=== PATIENT | male | born 1930 | race Caucasian/White ===

== ENCOUNTER 2017-09-29 05:09 | Observation (INO) ==
[2017-09-29 05:36] LABS: Basophils % 0.8 %; Eosinophils # 0.2 K/mcL (0.0-0.6); Eosinophils % 4.3 %; Hematocrit 35.3 % (37.5-50.1); Hemoglobin 11.9 g/dL (12.9-16.9); Immature Granulocytes % 0.4 % (0-4); Lymphocytes # 1.6 K/mcL (0.6-4.6); Lymphocytes % 31.4 %; Mean Corpuscular HGB Conc 33.7 g/dL (31.6-35.5); Mean Corpuscular Hemoglobin 30.3 pg (28.0-33.3); Mean Corpuscular Volume 89.8 fL (83.0-100.0); Monocytes # 0.6 K/mcL (0.0-1.3); Monocytes % 11.1 %; Neutrophils # 2.6 K/mcL (1.6-8.9); Platelet Count 156 K/mcL (140-400); Red Blood Count 3.93 M/mcL (4.19-5.50); Red Cell Distribution Width 12.4 % (11.5-14.5)
--- NOTE | 2017-09-29 05:43 | Emergency Department Note ---
Disposition Clinical Impression: Chest pressure Dyspnea Qualifiers: Dyspnea type: unspecified Qualified Code(s): R06.00 - Dyspnea, unspecified Disposition: Still a Patient Condition: Undetermined Referrals: Zain Ching MD [Primary Care Provider] - Forms: ED Satisfaction Letter General Adult HPI - General Chief complaint: ED Shortness of Breath/Dyspnea Stated complaint: MIKAELA Time Seen by Provider: 09/29/17 05:17 Source: patient, family Limitations: no limitations Nursing Notes Reviewed: Yes Vital Signs Reviewed: Yes - History of Present Illness HPI Narrative: 87-year-old male who presents due to shortness of breath for the last 8 hours. He said it started as he was getting ready to go to bed. He denies ever feeling this way before. He denies a history of coronary arterial disease. 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 Jamil Covarrubias for his bradycardia. In reading his clinic notes it seems that the consensus was not to go ahead with a pacemaker unless he has worsening of his chronic fatigue. He does admit to a pressure in his chest which is present on exertion He denies any other symptoms aside what he described above. He states that yesterday afternoon he was feeling normal. No fever or abdominal pain. Pain Scale: 0 Improves with: nothing Worsens with: nothing Associated symptoms: Reports: denies other symptoms Treatments Prior to Arrival: none - Related Data Home Medications Medication Instructions Recorded Confirmed Cholecalciferol (Vitamin D3) 1,000 unit PO DAILY 02/16/16 05/10/17 [Vitamin D3] Levothyroxine [Synthroid] 75 mcg PO DAILY 02/16/16 05/10/17 Pantoprazole Sodium [Protonix] 40 mg PO DAILY 02/16/16 05/10/17 Cyanocobalamin (Vitamin B-12) 2,000 mcg PO DAILY 08/05/16 05/10/17 [Vitamin B-12] Simvastatin [Zocor] 40 mg PO HS 08/05/16 05/10/17 Previous Rx's Medication Instructions Recorded Losartan [Cozaar] 100 mg PO DAILY tablet 08/09/16 Allergies Allergy/AdvReac Type Severity Reaction Status Date / Time No Known Allergies Allergy Verified 05/10/17 04:56 All systems ED: reviewed and negative except as stated. Constitutional: Denies: fever ENT ED: Denies: throat pain Respiratory: Reports: dyspnea. Denies: cough Gastrointestinal: Denies: abdominal pain Musculoskeletal: Denies: back pain Integumentary: Denies: rash Neurological: Denies: headache Endocrine: Reports: fatigue Past Medical History - Past Medical History Medical history: Reports: GERD, hyperlipidemia, hypertension, thyroid disease, other Psychiatric history: Reports: no psych history - Social History Smoking Status: Former smoker Smokeless Tobacco Status: No Alcohol use: Reports: none Drug use: Reports: none Physical Exam - General Limitations: no limitations General appearance: alert, in no apparent distress - Head Head exam: atraumatic - Eye Eye exam: Present: normal appearance, PERRL - ENT ENT exam: normal exam, normal oropharynx - Neck Neck exam: Present: normal inspection - Chest Chest inspection: Present: normal inspection - Respiratory Respiratory exam: Present: normal lung sounds bilaterally. Absent: respiratory distress - Cardiovascular Cardiovascular exam: Present: normal rhythm, bradycardia - Abdominal Exam Abdominal exam: Present: soft, Non-Tender - Extremities Exam Extremities exam: Present: normal inspection - Neurological Exam Neurological exam: Present: alert, oriented X3 - Psychiatric Psychiatric exam: Present: normal affect, normal mood - Skin Skin exam: Present: warm, dry Course Course Narrative: His d-dimer is elevated. His GFR is not optimal so we will do a VQ scan to rule out pulmonary embolism. EKG shows sinus bradycardia. Otherwise lab work is unremarkable. Signed out to the day team to follow up on the VQ scan results and provide disposition. Vital Signs Temperature 97.3 F L 09/29/17 05:09 Pulse Rate 52 09/29/17 05:09 Respiratory Rate 20 09/29/17 05:09 Blood Pressure 176/72 09/29/17 05:09 O2 Sat by Pulse Oximetry 99 09/29/17 05:09 Temperature 97.3 F L 09/29/17 05:09 Pulse Rate 52 09/29/17 07:04 Respiratory Rate 14 09/29/17 07:04 Blood Pressure 141/77 09/29/17 07:04 O2 Sat by Pulse Oximetry 100 09/29/17 07:04 Oxygen Delivery Oxygen Delivery Room Air Medical Decision Making - Medical Records Medical records reviewed: Yes I reviewed the patient's medical records. - Lab Data Lab results reviewed: Yes I reviewed the patient's lab results. Result diagrams: 09/29/17 05:30 09/29/17 05:30 Lab Results 09/29/17 09/29/17 09/29/17 Range/Units 05:30 05:30 05:30 WBC 5.1 (4.3-11.1) K/mcL RBC 3.93 L (4.19-5.50) M/mcL Hgb 11.9 L (12.9-16.9) g/dL Hct 35.3 L (37.5-50.1) % MCV 89.8 (83.0-100.0) fL MCH 30.3 (28.0-33.3) pg MCHC 33.7 (31.6-35.5) g/dL RDW 12.4 (11.5-14.5) % Plt Count 156 (140-400) K/mcL MPV 9.0 L (9.4-12.4) fL Immature Gran % 0.4 (0-4) % Seg Neutrophils % 52.0 % Lymphocytes % 31.4 % Monocytes % 11.1 % Eosinophils % 4.3 % Basophils % 0.8 % Neutrophils # 2.6 (1.6-8.9) K/mcL Lymphocytes # 1.6 (0.6-4.6) K/mcL Monocytes # 0.6 (0.0-1.3) K/mcL Eosinophils # 0.2 (0.0-0.6) K/mcL Basophils # 0.0 (0.0-0.2) K/mcL D-Dimer 837 H (0-500) ng/mLFEU Sodium 141 (136-145) mEq/L Potassium 4.2 (3.5-4.5) mEq/L Chloride 108 (98-109) mEq/L Carbon Dioxide 25 (19-29) mEq/L BUN 19 (8-26) mg/dL Creatinine 1.42 H (0.72-1.25) mg/dL Est GFR ( Amer) 57 L (> 60) Est GFR (Non-Af Amer) 47 L (> 60) BUN/Creatinine Ratio 13 (6-26) Glucose 124 H (70-99) mg/dL Calculated Osmolality 296 (280-300) Calcium 10.2 (8.6-10.8) mg/dL Troponin I (0-0.03) ng/mL B-Natriuretic Peptide (0-100) pg/mL 09/29/17 09/29/17 Range/Units 05:30 05:30 WBC (4.3-11.1) K/mcL RBC (4.19-5.50) M/mcL Hgb (12.9-16.9) g/dL Hct (37.5-50.1) % MCV (83.0-100.0) fL MCH (28.0-33.3) pg MCHC (31.6-35.5) g/dL RDW (11.5-14.5) % Plt Count (140-400) K/mcL MPV (9.4-12.4) fL Immature Gran % (0-4) % Seg Neutrophils % % Lymphocytes % % Monocytes % % Eosinophils % % Basophils % % Neutrophils # (1.6-8.9) K/mcL Lymphocytes # (0.6-4.6) K/mcL Monocytes # (0.0-1.3) K/mcL Eosinophils # (0.0-0.6) K/mcL Basophils # (0.0-0.2) K/mcL D-Dimer (0-500) ng/mLFEU Sodium (136-145) mEq/L Potassium (3.5-4.5) mEq/L Chloride (98-109) mEq/L Carbon Dioxide (19-29) mEq/L BUN (8-26) mg/dL Creatinine (0.72-1.25) mg/dL Est GFR ( Amer) (> 60) Est GFR (Non-Af Amer) (> 60) BUN/Creatinine Ratio (6-26) Glucose (70-99) mg/dL Calculated Osmolality (280-300) Calcium (8.6-10.8) mg/dL Troponin I 0.01 (0-0.03) ng/mL B-Natriuretic Peptide 89 (0-100) pg/mL - Radiology Data Radiology results reviewed: Yes I reviewed the patient's radiology results. - EKG Data EKG #1 EKG attestation: Yes I reviewed and interpreted this EKG. EKG shows normal: sinus rhythm Rate: bradycardia Rhythm: NSR Attestation Statement - Attestation Attestation: I, Simone Hammond MD, personally evaluated this patient and discussed their management with the resident physician. I reviewed the resident's note and agree with the documented findings, medical decision making, and plan of care. 87-year-old male presents to the emergency department with a complaint of shortness of breath all night which started just after he went to bed last evening. No cough or fever. He denies chest pain but states that he has a tightness and discomfort to his chest. Patient has a history of chronic bradycardia. On examination patient is a well-developed well-nourished well-appearing elderly male in no acute distress. He is alert and oriented 3. There is no cyanosis or diaphoresis. Breath sounds are slightly decreased bilaterally with a few late expiratory wheezes. No rales noted. Heart is bradycardic and slightly irregular. Abdomen soft and nontender with normal bowel sounds. Labs reviewed. Elevated d-dimer. At shift change patient is awaiting a VQ scan and is being signed out to the oncoming dayshift team, Dr. Perez and Dr. Farmer.
[2017-09-29 05:58] LABS: Calcium 10.2 mg/dL (8.6-10.8); Potassium 4.2 mEq/L (3.5-4.5)
--- NOTE | 2017-09-29 08:25 | Emergency Department Note ---
Disposition Clinical Impression: Chest pressure Dyspnea Qualifiers: Dyspnea type: unspecified Qualified Code(s): R06.00 - Dyspnea, unspecified Disposition: Still a Patient Condition: Undetermined Time of Disposition: 15:36 General Adult HPI - General Chief complaint: ED Shortness of Breath/Dyspnea Stated complaint: MIKAELA Time Seen by Provider: 09/29/17 05:17 Source: patient, family Limitations: no limitations Nursing Notes Reviewed: Yes Vital Signs Reviewed: Yes - History of Present Illness HPI Narrative: Mr. Landrum, 87-year-old male, presents from home for evaluation of shortness of breath. Onset approximately 20:00 last night as he was getting ready for bed. Associated with chest heaviness present at rest and with exertion. His dyspnea did not improve with his CPAP machine. No previous episodes of similar symptoms. Patient has a history of known bradycardia and was seen yesterday by his PCP, Dr. Rothman, and his manager environmental, Dr. Covarrubias. In speaking with the patient, he is on the fence as to whether or not he would desire a pacemaker. In reading the patient's clinic notes, the consensus is that he is currently on hold as Dr. Covarrubias do not believe his bradycardia was shooting to his chronic fatigue. PMH: Appendectomy, CKD, remote prostate cancer, bradycardia ROS: Positive: Dyspnea, chest heaviness Negative: Fever, chills, numbness, tingling, palpitations, back pains, weakness , cough Pain Scale: 0 Improves with: nothing Worsens with: nothing Associated symptoms: Reports: denies other symptoms Treatments Prior to Arrival: none - Related Data Home Medications Medication Instructions Recorded Confirmed Cholecalciferol (Vitamin D3) 1,000 unit PO DAILY 02/16/16 09/29/17 [Vitamin D3] Levothyroxine [Synthroid] 75 mcg PO DAILY 02/16/16 09/29/17 Pantoprazole Sodium [Protonix] 40 mg PO DAILY 02/16/16 09/29/17 Cyanocobalamin (Vitamin B-12) 2,000 mcg PO DAILY 08/05/16 09/29/17 [Vitamin B-12] Simvastatin [Zocor] 40 mg PO HS 08/05/16 09/29/17 Latanoprost [Xalatan] 1 drop OP HS 09/29/17 09/29/17 Losartan Potassium [Cozaar] 50 mg PO DAILY 09/29/17 09/29/17 Tamsulosin HCl [Flomax] 0.4 mg PO DAILY 09/29/17 09/29/17 Allergies Allergy/AdvReac Type Severity Reaction Status Date / Time No Known Allergies Allergy Verified 05/10/17 04:56 All systems ED: reviewed and negative except as stated. Review of Systems: As Per HPI Constitutional: Denies: fever ENT ED: Denies: throat pain Respiratory: Reports: dyspnea. Denies: cough Gastrointestinal: Denies: abdominal pain Musculoskeletal: Denies: back pain Integumentary: Denies: rash Neurological: Denies: headache Endocrine: Reports: fatigue Past Medical History - Past Medical History Medical history: Reports: GERD, hyperlipidemia, hypertension, thyroid disease, other Psychiatric history: Reports: no psych history - Social History Smoking Status: Former smoker Smokeless Tobacco Status: No Alcohol use: Reports: none Drug use: Reports: none Physical Exam Vital Signs Reviewed General: Patient is alert, oriented, and in no acute distress. HEENT: No facial asymmetry. Head is normocephalic and atraumatic. Oral mucosa moist. Trachea midline. Cardiovascular: Heart bradycardic rate and regular rhythm without clicks, rubs, gallops, or murmurs. No JVD. PMI nondisplaced. Bilateral radial pulses 2/4 and equal. No pedal edema. Respiratory: Symmetric chest rise with good respiratory effort. Bilateral breath sounds are clear without wheezing, crackles, or rhonchi. Abdomen: Bowel sounds present normoactive x-4 quadrants. Abdomen is soft, nondistended, and nontender. No organomegaly noted. Neuro: GCS 15. Skin: Warm, dry, intact. Psych: Patient's affect is appropriate for situation. - General Limitations: no limitations General appearance: alert, in no apparent distress Course Course Narrative: History presents with concerning symptoms of dyspnea and chest heaviness. D- dimer is elevated however, given patient's history of chronic kidney disease, will perform VQ scan. Physical exam is unremarkable for congestive heart failure or pneumonia. Chest x-ray is unremarkable. EKG shows worsening of ST depressions in leads V5, V6. Initial troponin is 0.01. We will continue to monitor. VQ scan shows low probability. Initial troponin is below upper limit of normal. BNP not elevated. Chest x-ray unremarkable. Patient agrees to admission for chest pain rule out ACS. I discussed in detail my concerns with him the need for repeat laboratory work as well as additional cardiac imaging including cardiac ultrasound. He has no additional questions concerning this time. Stress the patient with the admitting hospitalist, Dr. Barbosa, who agrees to accept the patient continued evaluation and management. Vital Signs Temperature 97.3 F L 09/29/17 05:09 Pulse Rate 52 09/29/17 05:09 Respiratory Rate 20 09/29/17 05:09 Blood Pressure 176/72 09/29/17 05:09 O2 Sat by Pulse Oximetry 99 09/29/17 05:09 Temperature 97.3 F L 09/29/17 05:09 Pulse Rate 48 09/29/17 12:21 Respiratory Rate 13 09/29/17 12:21 Blood Pressure 194/85 09/29/17 12:21 O2 Sat by Pulse Oximetry 99 09/29/17 12:21 Oxygen Delivery Oxygen Delivery Room Air Medical Decision Making - Medical Records Medical records reviewed: Yes I reviewed the patient's medical records. - Lab Data Lab results reviewed: Yes I reviewed the patient's lab results. Result diagrams: 09/29/17 05:30 09/29/17 05:30 Lab Results 09/29/17 09/29/17 09/29/17 Range/Units 05:30 05:30 05:30 WBC 5.1 (4.3-11.1) K/mcL RBC 3.93 L (4.19-5.50) M/mcL Hgb 11.9 L (12.9-16.9) g/dL Hct 35.3 L (37.5-50.1) % MCV 89.8 (83.0-100.0) fL MCH 30.3 (28.0-33.3) pg MCHC 33.7 (31.6-35.5) g/dL RDW 12.4 (11.5-14.5) % Plt Count 156 (140-400) K/mcL MPV 9.0 L (9.4-12.4) fL Immature Gran % 0.4 (0-4) % Seg Neutrophils % 52.0 % Lymphocytes % 31.4 % Monocytes % 11.1 % Eosinophils % 4.3 % Basophils % 0.8 % Neutrophils # 2.6 (1.6-8.9) K/mcL Lymphocytes # 1.6 (0.6-4.6) K/mcL Monocytes # 0.6 (0.0-1.3) K/mcL Eosinophils # 0.2 (0.0-0.6) K/mcL Basophils # 0.0 (0.0-0.2) K/mcL D-Dimer 837 H (0-500) ng/mLFEU Sodium 141 (136-145) mEq/L Potassium 4.2 (3.5-4.5) mEq/L Chloride 108 (98-109) mEq/L Carbon Dioxide 25 (19-29) mEq/L BUN 19 (8-26) mg/dL Creatinine 1.42 H (0.72-1.25) mg/dL Est GFR ( Amer) 57 L (> 60) Est GFR (Non-Af Amer) 47 L (> 60) BUN/Creatinine Ratio 13 (6-26) Glucose 124 H (70-99) mg/dL Calculated Osmolality 296 (280-300) Calcium 10.2 (8.6-10.8) mg/dL Troponin I (0-0.03) ng/mL B-Natriuretic Peptide (0-100) pg/mL 09/29/17 09/29/17 Range/Units 05:30 05:30 WBC (4.3-11.1) K/mcL RBC (4.19-5.50) M/mcL Hgb (12.9-16.9) g/dL Hct (37.5-50.1) % MCV (83.0-100.0) fL MCH (28.0-33.3) pg MCHC (31.6-35.5) g/dL RDW (11.5-14.5) % Plt Count (140-400) K/mcL MPV (9.4-12.4) fL Immature Gran % (0-4) % Seg Neutrophils % % Lymphocytes % % Monocytes % % Eosinophils % % Basophils % % Neutrophils # (1.6-8.9) K/mcL Lymphocytes # (0.6-4.6) K/mcL Monocytes # (0.0-1.3) K/mcL Eosinophils # (0.0-0.6) K/mcL Basophils # (0.0-0.2) K/mcL D-Dimer (0-500) ng/mLFEU Sodium (136-145) mEq/L Potassium (3.5-4.5) mEq/L Chloride (98-109) mEq/L Carbon Dioxide (19-29) mEq/L BUN (8-26) mg/dL Creatinine (0.72-1.25) mg/dL Est GFR ( Amer) (> 60) Est GFR (Non-Af Amer) (> 60) BUN/Creatinine Ratio (6-26) Glucose (70-99) mg/dL Calculated Osmolality (280-300) Calcium (8.6-10.8) mg/dL Troponin I 0.01 (0-0.03) ng/mL B-Natriuretic Peptide 89 (0-100) pg/mL - Radiology Data Radiology results reviewed: Yes I reviewed the patient's radiology results. Chest X-Ray 09/29/17 05:24 IMPRESSION: No radiographic evidence of acute cardiopulmonary disease. D/ / Regino Simons / Regino Simons Interpreting Provider: Regino Simons Chest X-Ray 09/29/17 05:24 IMPRESSION: No radiographic evidence of acute cardiopulmonary disease. D/ / Regino Simons / Regino Simons Interpreting Provider: Regino Simons Pulmonary Perfusion Imaging 09/29/17 06:06 IMPRESSION: 1. Low probability for pulmonary embolism. 2. Clumped activity in central airways potentially due to poor inspiratory effort and/or airways disease. D/ / Coleman Mayo MD / Coleman Mayo MD Interpreting Provider: Coleman Mayo MD - EKG Data EKG #1 EKG attestation: Yes I reviewed and interpreted this EKG. EKG results narrative: EKG dated 09/29/17 at 05:22 interpreted as sinus bradycardia with a rate of 52. TN 181, QRS 110, QT/QTc 460/440. Nonspecific ST changes. Left axis. Compared previous dated 08/31/2017 shows no acute ischemic changes comparison. Attestation Statement - Attestation Attestation: I examined this patient and my medical decision-making was reviewed with the Resident Physician. I agree with the documented findings, disposition and treatment plan as described except to the extent set forth below. Patient signed out by Dr. Hammond pending V/Q. V/Q low probability for PE. Admitted to medicine.
[2017-09-29] MEDS ORDERED: Acetaminophen 325 MG TABLET PO PRN (11:20)
[2017-09-29] MEDS ORDERED: Naloxone 0.4 MG/ML INJ IVP PRN (11:20)
--- NOTE | 2017-09-29 11:36 | Internal Med History&Physical ---
Date of Encounter: 09/29/17 Time of Encounter: 11:32 Assessment and Plan (1) Chest pressure Current visit: Yes Status: Acute Patient is known to have a chest pressure. He is well known to cardiology service. Cardiology is on the board. We will get a recommendation from cardiology. (2) Bradycardia Current visit: No Status: Chronic Bradycardia: This patient is known to have a bradycardia for long duration. Noted that patient is following with Dr. Jamil Potter is her technical business analyst I called cardiology consult for possible evaluation by cardiology for any further intervention. (3) CKD (chronic kidney disease) Current visit: No Status: Chronic Qualifiers: Chronic kidney disease stage: stage 2 (mild) Qualified Code(s): N18.2 - Chronic kidney disease, stage 2 (mild) (4) Dyspnea Current visit: Yes Status: Acute Ongoing dyspnea unlikely known etiology. Patient is feeling better and oxygen saturation in the 90s. Possible COPD Will closely observe. Qualifiers: Dyspnea type: unspecified Qualified Code(s): R06.00 - Dyspnea, unspecified (5) DVT prophylaxis Current visit: Yes Status: Acute Heparin Medical Decision Making : moderate risk secondary to underlying comorbid conditions. Internal Medicine - H&P: HPI Chief complaint: Shortness of breath/chest pressure Admitted From: Emergency Dept Plans for Post Hospital Care: Home History of present illness: PCP: Dr. Siegel Brief past medical history: Glaucoma, hypertension, coronary artery disease, bradycardia, sleep apnea History of present medical illness: Patient is ongoing feeling of"weakness"for past 2 weeks. Noted that in past 48 hours patient was having difficulty breathing. Patient woke up around 3 in the morning and was unable to breathe that is the reason he came to the hospital for further evaluation. Generally is known to have a sleep apnea and uses CPAP at night. Patient was not able to breathe as his accessory muscles of respiration were pretty active along with that patient was having difficulty in maintaining his oxygen saturation at when the squad came it was noted that his saturation was in 70s and they brought him to the hospital for further evaluation. Patient denies abdominal pain, nausea, vomiting, dizziness or diarrhea. Workup in the emergency room: Patient was evaluated in the emergency room. Basic labs were drawn. Patient underwent chest x-ray. This x-ray did not reveal any major acute findings. Patient underwent a VQ scan which was suggestive of low probably for pulmonary embolism. Reason for admission: Patient also was complaining of chest pressure and this will reason for admission to the hospital as to rule out acute coronary syndrome. Family history: Noncontributory Past Med Surg Social Fam HX - Past Medical History Medical history: GERD, hyperlipidemia, hypertension, thyroid disease, other Psychiatric history: no psych history - Social History Smoking Status: Former smoker Smokeless Tobacco Status: No Alcohol use: none Drug use: none Internal Medicine - H&P: Meds Cholecalciferol (Vitamin D3) [Vitamin D3] 1,000 unit PO DAILY 02/16/16 [History] Levothyroxine [Synthroid] 75 mcg PO DAILY 02/16/16 [History] Pantoprazole Sodium [Protonix] 40 mg PO DAILY 02/16/16 [History] Cyanocobalamin (Vitamin B-12) [Vitamin B-12] 2,000 mcg PO DAILY 08/05/16 [ History] Simvastatin [Zocor] 40 mg PO HS 08/05/16 [History] Latanoprost [Xalatan] 1 drop OP HS 09/29/17 [History] Losartan Potassium [Cozaar] 50 mg PO DAILY 09/29/17 [History] Tamsulosin HCl [Flomax] 0.4 mg PO DAILY 09/29/17 [History] 3 Allergy/AdvReac Type Severity Reaction Status Date / Time No Known Allergies Allergy Verified 05/10/17 04:56 All Systems PM: A 10-system review of systems was performed and is negative for pertinent findings except as documented above in the HPI. - Constitutional Constitutional: no chills, no fever(s), no night sweats - EENT Eyes: no change in vision, no discharge, no pain, no photophobia Ears: no ear discharge, no ear pain, no tinnitus Nose, mouth and throat: no dysphagia, no nasal discharge, no neck pain, no sore throat - Cardiovascular Cardiovascular ROS IM: chest pain, diaphoresis, dyspnea, dyspnea on exertion, no lightheadedness, no palpitations, no syncope - Respiratory Respiratory: cough, dyspnea, wheezing, no excessive phlegm production - Gastrointestinal Gastrointestinal: no abdominal pain, no diarrhea, no hematemesis, no hematochezia, no melena, no nausea, no vomiting - Musculoskeletal Musculoskeletal ROS IM: no numbness, no tingling - Integumentary Integumentary IM: no rash, no unusual bruising - Neurological Neurological ROS: no confusion, no convulsions, no focal weakness, no numbness, no tingling, no tremor(s) - Hematologic/Lymphatic Hematologic/Lymphatic: no easy bruising - Constitutional Vitals: Temp Pulse Resp BP Pulse Ox 97.3 F L 40 18 149/77 100 09/29/17 05:09 09/29/17 08:51 09/29/17 08:51 09/29/17 08:51 09/29/17 08:51 General appearance: Present: A&O X 3, pleasant, no acute distress, answers questions appropriately - Head Head exam: Present: atraumatic, normocephalic - Eye Eye exam: Present: PERRL, conjuntiva pink, sclera anicteric Pupils: Present: PERRL - Neck Neck exam general surgery: Present: supple, trachea midline. Absent: lymphadenopathy - Respiratory Respiratory exam: Present: CTAB. Absent: accessory muscle use, rales, rhonchi, wheezes - Cardiovascular Cardiovascular exam: Present: RRR, +S1, +S2. Absent: diastolic murmur, gallop, rubs, systolic murmur - GI/Abdominal GI/Abdominal exam: Present: normal bowel sounds, soft, no peritoneal signs. Absent: distended, tenderness - Extremities Exam Extremities exam: Present: warm, radial pulses palpable and symmetrical. Absent : calf tenderness, cyanotic, pedal edema - Neurological Exam Neurological exam: Present: CN II-XII intact, oriented X3, no focal deficits. Absent: pronater drift, facial droop, speech deficit - Skin Skin exam: Present: dry, intact Internal Med - H&P Results - Labs CBC & Chem 7: 09/29/17 05:30 09/29/17 05:30
--- NOTE | 2017-09-29 12:54 | Cardiology Consult Note ---
Date of Encounter: 09/29/17 Time of Encounter: 13:00 Assessment and Plan (1) Chest pressure Current Visit: Yes Status: Acute Per Cardiology: Atypical chest tightness that occurred at rest with utilization of CPAP and resolved with removal. Negative nuclear stress test May 2014. Echo May 2014 showed EF 60%, mild diastolic dysfunction. Troponins negative 2. Continue to cycle troponins. We'll check echo. (2) Elevated d-dimer Current Visit: Yes Status: Acute Per Cardiology: Elevated d-dimer in the 800s. VQ scan showed low probability for PE. Further management per primary service. Shortness of breath now resolved. (3) Bradycardia Current Visit: No Status: Chronic Per Cardiology: Known history of bradycardia. Seen by Dr. Jamil Covarrubias electrophysiology yesterday as a new consult for evaluation for possible pacemaker with recent fall and fatigue symptoms. Per review of note, patient declined pacemaker at that time. We'll monitor telemetry overnight. Patient interested in pacemaker if clinically appropriate. Patient briefly discussed with Dr. Jamil Covarrubias and if patient would like to desire to proceed would be set up as an outpatient unless any significant events noted overnight. Discussion w patient/family: The assessment and plan as outlined above was discussed with the patient and/or family members who expressed understanding and agreement. All questions were answered. Thank you for involving us in the care of your patient. Please call with any questions. History of Present Illness Consult date: 09/29/17 Requesting physician: Jeff Barbosa Consult reason: CP Chief complaint: SOB History of present illness: Mr. Landrum is a 87 year old male with relevant past medical history of hypertension, hyperlipidemia, DM 2, past history nicotine abuse. Patient follows with Dr. Morley with cardiology. Actually patient saw Dr. Jamil Covarrubias yesterday for referral regarding bradycardia and possible pacemaker. Cardiology consultation today for short suppress, chest tightness, and to reevaluate for possible pacer. Patient reports fairly active and walks the [facility] about 1 mile per day with no chest pain or shortness of breath. Reports had a fall about a week ago residual left mid axillary soreness. He reports after appointment yesterday around 8 PM was going to bed and wearing his CPAP he developed shortness of breath with some "chest funniness". Upon further review patient does report expressing some mild tightness. Symptoms resolved with removal of CPAP machine. He denies any recurrent chest pain currently. Patient confirms her discussion yesterday he did not desire to proceed with pacemaker, however now willing to explore if deemed clinically appropriate. Past Med Surg Social Fam HX - Past Medical History Attestation: Yes The following information was validated with the patient. Source: patient, old records reviewed Medical history: GERD, hyperlipidemia, hypertension, thyroid disease, other Psychiatric history: no psych history - Past Surgical History Surgical History: cholecystectomy - Social History Smoking Status: Former smoker Smokeless Tobacco Status: No Alcohol use: none Drug use: none Medications and Allergies Cholecalciferol (Vitamin D3) [Vitamin D3] 1,000 unit PO DAILY 02/16/16 [History] Levothyroxine [Synthroid] 75 mcg PO DAILY 02/16/16 [History] Pantoprazole Sodium [Protonix] 40 mg PO DAILY 02/16/16 [History] Cyanocobalamin (Vitamin B-12) [Vitamin B-12] 2,000 mcg PO DAILY 08/05/16 [ History] Simvastatin [Zocor] 40 mg PO HS 08/05/16 [History] Latanoprost [Xalatan] 1 drop OP HS 09/29/17 [History] Losartan Potassium [Cozaar] 50 mg PO DAILY 09/29/17 [History] Tamsulosin HCl [Flomax] 0.4 mg PO DAILY 09/29/17 [History] 3 Allergy/AdvReac Type Severity Reaction Status Date / Time No Known Allergies Allergy Verified 05/10/17 04:56 All Systems Review: A 10-system review of systems was performed and is negative for pertinent findings except as documented above in the HPI. - Cardiovascular Cardiovascular: as per HPI, chest pain at rest, dyspnea at rest Physical Examination Vital Signs, Last 4 Hours Pulse Resp BP Pulse Ox 09/29/17 12:21 48 13 194/85 99 09/29/17 12:19 16 147/82 General: Conversant, No Apparent Distress HEENT: Atraumatic, Normocephaly, Mucus Membranes Moist Neck: No JVD, Normal carotid pulses Cardiac: Reg Rate and Rhythm, Normal S1 and S2, No Murmur Lungs: Normal Breath Sounds, No Wheeze, Rales, Rhonchi Neuro: Alert and responsive, No focal deficits noted Abdomen: Soft, Non-Tender Skin: No rashes noted on visualized skin Musculoskeletal: No Chest Wall Tenderness Extremities: No Clubbing, No Cyanosis, No Edema, Normal Pulses Results 09/29/17 05:30 09/29/17 05:30 Lab Results Laboratory Tests 01/08/16 09/29/17 09/29/17 08:38 05:30 05:30 D-Dimer 837 H Troponin I 0.01 B-Natriuretic Peptide TSH 1.021 09/29/17 09/29/17 05:30 11:52 D-Dimer Troponin I 0.01 B-Natriuretic Peptide 89 TSH ITS Impressions Chest X-Ray 09/29/17 05:24 IMPRESSION: No radiographic evidence of acute cardiopulmonary disease. D/ / Regino Simons / Regino Simons Interpreting Provider: Regino Simons Pulmonary Perfusion Imaging 09/29/17 06:06 IMPRESSION: 1. Low probability for pulmonary embolism. 2. Clumped activity in central airways potentially due to poor inspiratory effort and/or airways disease. D/ / Coleman Mayo MD / Coleman Mayo MD Interpreting Provider: Coleman Mayo MD Active Medications Acetaminophen (Tylenol) 650 mg PO Q6HR PRN PRN Reason: Mild Pain (1-3) Stop: 03/31/18 11:21 Cyanocobalamin (Vitamin B12) 2,000 mcg PO DAILY [facility] Stop: 04/01/18 09:01 Docusate Sodium (Colace) 100 mg PO BID PRN PRN Reason: Constipation Stop: 03/31/18 11:21 Heparin Sodium (Porcine) (Heparin) 5,000 unit SQ Q12HCO [facility] Stop: 03/31/18 18:01 Latanoprost (Xalatan) 1 drop BOTH EYES HS [facility] PRN Reason: Protocol Stop: 03/31/18 21:01 Levothyroxine Sodium (Synthroid) 75 mcg PO 0630 [facility] Stop: 04/01/18 06:31 Losartan Potassium (Cozaar) 50 mg PO DAILY [facility] Stop: 04/01/18 09:01 Naloxone HCl (Narcan) 0.4 mg IVP Q2MIN PRN PRN Reason: Opioid Reversal Stop: 03/31/18 11:21 Omeprazole (Prilosec) 20 mg PO DAILY [facility] Stop: 04/01/18 09:01 Simvastatin (Zocor) 40 mg PO HS [facility] PRN Reason: Protocol Stop: 03/31/18 21:01 Tamsulosin HCl (Flomax) 0.4 mg PO DAILY [facility] PRN Reason: Protocol Stop: 04/01/18 09:01 Vitamin D (Vitamin D) 1,000 unit PO DAILY [facility] Stop: 04/01/18 09:01 - Imaging and Cardiology Chest Xray: report reviewed Stress Test: report reviewed Echo: report reviewed - EKG Interpretation EKG results cardiology: personally reviewed (Sinus arrhythmia/sinus bradycardia in the 50s with PACs), other (Current sinus bradycardia in the 50s to 60s on telemetry) Consult Discharge Plan - Plan Referrals: Zain Ching MD [Primary Care Provider] -
[2017-09-29] MEDS: *HR* Heparin 5,000 UNIT/ML VIAL SQ SCH (17:45)
--- NOTE | 2017-09-29 18:26 | Electrocardiograph Report ---
[place] [id number] Test Date: 2017-09-29 Pat Name: Juliocesar Landrum Department: 103 Room: 2A Gender: M [employer] Inserter: [place] : 1930 Requested By: Willem Mauricio Order Number: [id number] Reading MD: Holly Covarrubias Measurements Intervals [place] Rate: 52 P: 84 LA: 181 QRS: -41 QRSD: 110 T: 50 QT: 460 QTc: 440 Interpretive Statements SINUS BRADYCARDIA WITH MARKED SINUS ARRHYTHMIA MARKED LEFT AXIS DEVIATION [QRS AXIS < -30] Electronically Signed On 09-29-2017 18:25:19 EST by Holly Covarrubias
[2017-09-29] MEDS: Latanoprost 2.5 ML BOTTLE BOTH EYES SCH (22:02)
[2017-09-30 03:25] LABS: Bilirubin,Urine Negative (Negative); Blood,Urine Negative (Negative); Clarity,Urine Clear (Clear); Color,Urine Yellow (Yellow); Glucose,Urine (UA) Normal (Normal); Ketones,Urine Negative (Negative); Leukocyte Esterase,Urine Negative (Negative); Nitrite,Urine Negative (Negative); PH,Urine 5.5 pH Units (5.0-8.0); Protein,Urine Negative (Neg-Trace); Specific Gravity,Urine 1.019 (1.010-1.025); Urobilinogen,Urine Normal (Normal)
[2017-09-30 03:38] LABS: Basophils # 0.1 K/mcL (0.0-0.2); Basophils % 0.9 %; Eosinophils # 0.2 K/mcL (0.0-0.6); Eosinophils % 2.8 %; Hematocrit 34.9 % (37.5-50.1); Hemoglobin 11.8 g/dL (12.9-16.9); Immature Granulocytes % 0.2 % (0-4); Lymphocytes # 1.4 K/mcL (0.6-4.6); Lymphocytes % 24.7 %; Mean Corpuscular HGB Conc 33.8 g/dL (31.6-35.5); Mean Corpuscular Volume 88.8 fL (83.0-100.0); Mean Platelet Volume 9.7 fL (9.4-12.4); Monocytes # 0.6 K/mcL (0.0-1.3); Monocytes % 10.4 %; Neutrophils # 3.5 K/mcL (1.6-8.9); Platelet Count 157 K/mcL (140-400); Red Blood Count 3.93 M/mcL (4.19-5.50); Red Cell Distribution Width 12.3 % (11.5-14.5)
[2017-09-30 03:49] LABS: INR 1.2; Prothrombin Time 12.6 Seconds (9.4-12.1)
[2017-09-30 03:51] LABS: Activated Partial Thrombo Time 28.3 Seconds (26.0-36.0)
[2017-09-30 03:54] LABS: Alanine Aminotransferase 17 Units/L (0-55); Albumin 3.6 g/dL (3.5-5.0); Alkaline Phosphatase 105 Units/L (38-126); Aspartate Amino Transferase 25 Units/L (5-34); BUN/Creatinine Ratio 15 (6-26); Bilirubin,Total 0.5 mg/dL (0.2-1.2); Blood Urea Nitrogen 19 mg/dL (8-26); Calcium 10.3 mg/dL (8.6-10.8); Carbon Dioxide 25 mEq/L (19-29); Chloride 107 mEq/L (98-109); Chol/HDL Ratio 4.3 (0-4.9); Cholesterol 163 mg/dL (< 200); Globulin 3.7 g/dL (2.4-3.5); Glucose 123 mg/dL (70-99); HDL Cholesterol 38 mg/dL (40-59); LDL Cholesterol,Calculated 95 mg/dL (0-99); Magnesium 1.6 mg/dL (1.6-2.6); Osmolality,Calculated 294 (280-300); Phosphorous 2.9 mg/dL (2.3-4.7); Potassium 3.9 mEq/L (3.5-4.5); Sodium 140 mEq/L (136-145); Total Protein 7.3 g/dL (6.0-8.3); Triglycerides 152 mg/dL (< 150); eGFR For African Americans > 60 (> 60); eGFR For Non-African Americans 54 (> 60)
[2017-09-30] MEDS: *HR* Heparin 5,000 UNIT/ML VIAL SQ SCH ×2 (06:12→18:00)
[2017-09-30] MEDS: Cholecalciferol (D-3) 1,000 UNIT TABLET PO SCH (09:35)
[2017-09-30] MEDS: Cyanocobalamin (B-12) 1,000 MCG TABLET PO SCH (09:35)
[2017-09-30 10:47] LABS: ABG Base Excess -1 mEq/L (-2 to 3); ABG HCO3 23 mEq/L (21-27); ABG Oxygen Saturation 97 % (95-98); ABG PCO2 36 mmHg (35-45); ABG PH 7.41 pH Units (7.32-7.45); ABG PO2 93 mmHg (85-104); ABG TCO2 24 mEq/L (20-26)
--- NOTE | 2017-09-30 12:16 | Cardiology Progress Note ---
Date of Encounter: 09/30/17 Time of Encounter: 12:20 Assessment and Plan (1) Chest pressure Current Visit: Yes Status: Acute Per Cardiology: Atypical chest tightness that occurred at rest with utilization of CPAP and resolved with removal. Negative nuclear stress test May 2014. Echo May 2014 showed EF 60%, mild diastolic dysfunction. Troponins negative 4. TTE completed this stay shows- LVEF 60%. Normal LV chamber size, wall thickness and function. Pseudonormal diastolic function. Normal right ventricular structure and function. Mild pulmonary hypertension. No significant valvular dysfunction. No further cardiac testing at this time. Cardiology will sign off. Call with questions. Out-pt f/u will be scheduled. (2) Bradycardia Current Visit: No Status: Chronic Per Cardiology: Known history of bradycardia. (States HR was low for many years.) Seen by Dr. Jamil Covarrubias electrophysiology in the out patient setting two days ago as a new consult for evaluation for possible pacemaker. He was s/p recent fall and fatigue symptoms. Reports fall was mechanical. Denies symptoms except for fatigue. Patient declined pacemaker at that time. Telemetry review shows sinus arrhthmia/ sinus bradycardia. Minimum HR seen was 30 bpm at 0230 am. HR in the 40's seen during daytime hours. Avg HR over 24 hours was 55 bpm. Holter completed recently in the out patient setting showed SB AVG HR 46 bpm that resulted in EP consult. Patient states he will continue to consider. Would not like to schedule at this time but will notify our office if he changes his mind. (3) Elevated d-dimer Current Visit: Yes Status: Acute Per Cardiology: Elevated d-dimer in the 800s. VQ scan showed low probability for PE. Further management per primary service. Shortness of breath now resolved. Doppler ordered by primary team. Discussion w patient/family: The assessment and plan as outlined above was discussed with the patient and/or family members who expressed understanding and agreement. All questions were answered. Thank you for involving us in the care of your patient. Please call with any questions. Subjective Principal diagnosis: chest pain Interval history: Patient denies dizziness or lightheadedness. Admits to fatigue over the past several months that is unchanged. Denies recurrent chest pain. Objective Vital Signs, Last 4 Hours Temp Pulse Resp BP Pulse Ox 09/30/17 11:04 97.5 F L 52 17 153/77 98 09/30/17 09:39 95 General: Conversant, No Apparent Distress HEENT: Atraumatic, Normocephaly, Mucus Membranes Moist Neck: No JVD, Normal carotid pulses Cardiac: Reg Rate and Rhythm, Normal S1 and S2, No Murmur, Other (Sinus arrhythmia) Lungs: Normal Breath Sounds, No Wheeze, Rales, Rhonchi Neuro: Alert and responsive, No focal deficits noted Abdomen: Soft, Non-Tender Skin: No rashes noted on visualized skin Musculoskeletal: No Chest Wall Tenderness Extremities: No Clubbing, No Cyanosis, No Edema, Normal Pulses Results 09/30/17 02:45 09/30/17 02:45 Lab Results 09/29/17 09/29/17 09/29/17 11:52 17:20 23:13 WBC Hgb Hct Plt Count INR APTT Sodium Potassium Chloride Carbon Dioxide BUN Creatinine Glucose Calcium Magnesium Total Bilirubin AST ALT Alkaline Phosphatase Troponin I 0.01 0.01 0.00 09/30/17 09/30/17 09/30/17 02:45 02:45 02:45 WBC 5.8 Hgb 11.8 L Hct 34.9 L Plt Count 157 INR 1.2 APTT 28.3 Sodium 140 Potassium 3.9 Chloride 107 Carbon Dioxide 25 BUN 19 Creatinine 1.26 H Glucose 123 H Calcium 10.3 Magnesium 1.6 Total Bilirubin 0.5 AST 25 ALT 17 Alkaline Phosphatase 105 Troponin I Chest X-Ray 09/29/17 05:24 IMPRESSION: No radiographic evidence of acute cardiopulmonary disease. D/ / Regino Simons / Regino Simons Interpreting Provider: Regino Simons Pulmonary Perfusion Imaging 09/29/17 06:06 IMPRESSION: 1. Low probability for pulmonary embolism. 2. Clumped activity in central airways potentially due to poor inspiratory effort and/or airways disease. D/ / Coleman Mayo MD / Coleman Mayo MD Interpreting Provider: Coleman Mayo MD Echocardiogram 09/29/17 13:30 Impressions: LVEF 60%. Normal LV chamber size, wall thickness and function. Pseudonormal diastolic function. Normal right ventricular structure and function. Mild pulmonary hypertension. No significant valvular dysfunction. Left Ventricular Wall Motion: Rest Echo Findings All wall segments showed normal motion. - Imaging and Cardiology Echo: report reviewed - EKG Interpretation EKG results cardiology: personally reviewed Consult Discharge Plan - Plan Referrals: Zain Ching MD [Primary Care Provider] -
--- NOTE | 2017-09-30 15:49 | Internal Med Progress Note ---
Date of Encounter: 09/30/17 Time of Encounter: 15:47 - Assessment and plan (1) Bradycardia Current Visit: No Status: Chronic (2) Dyspnea Current Visit: Yes Status: Acute Qualifiers: Dyspnea type: unspecified Qualified Code(s): R06.00 - Dyspnea, unspecified (3) Chest pressure Current Visit: Yes Status: Acute - Subjective Interval history: Admitted for chest pain and dyspnea. D-dimer was noted elevated therefore a VQ scan was done which was low probability. Chest x-ray was also noted negative. This morning we obtain an ABG and echocardiogram and both unremarkable. Echo showed normal EF with normal LV systolic function and [place] diastolic dysfunction. Urology has seen the patient. Apparently he has known bradycardia and he has seen Dr. Covarrubias in office and was offered a pacemaker which she declined. Dr. Leo has seen him today and patient is still declining pacemaker. His lowest heart rate was in 30s but apparently he remained asymptomatic and his blood pressure did not go down. He will be watched overnight and ambulated to see if he is stable. - Constitutional Vitals: Temp Pulse Resp BP Pulse Ox 97.6 F 59 17 127/73 96 09/30/17 15:38 09/30/17 15:38 09/30/17 15:38 09/30/17 15:38 09/30/17 15:38 General appearance: Present: A&O X 3, pleasant, no acute distress, answers questions appropriately - Head Head exam: Present: atraumatic, normocephalic - Eye Eye exam: Present: PERRL, conjuntiva pink, sclera anicteric Pupils: Present: PERRL - Neck Neck exam general surgery: Present: supple, trachea midline. Absent: lymphadenopathy - Respiratory Respiratory exam: Present: CTAB. Absent: accessory muscle use, rales, rhonchi, wheezes - Cardiovascular Cardiovascular exam: Present: RRR, +S1, +S2. Absent: diastolic murmur, gallop, rubs, systolic murmur - GI/Abdominal GI/Abdominal exam: Present: normal bowel sounds, soft, no peritoneal signs. Absent: distended, tenderness - Extremities Exam Extremities exam: Present: warm, radial pulses palpable and symmetrical. Absent : calf tenderness, cyanotic, pedal edema - Neurological Exam Neurological exam: Present: CN II-XII intact, oriented X3, no focal deficits. Absent: pronater drift, facial droop, speech deficit - Skin Skin exam: Present: dry, intact Internal Medicine: Result - Labs CBC & Chem 7: 09/30/17 02:45 09/30/17 02:45 Labs: Short CBC 09/30/17 Range/Units 02:45 WBC 5.8 (4.3-11.1) K/mcL Hgb 11.8 L (12.9-16.9) g/dL Hct 34.9 L (37.5-50.1) % Plt Count 157 (140-400) K/mcL Neutrophils # 3.5 (1.6-8.9) K/mcL BMP 09/30/17 02:45 Sodium 140 Potassium 3.9 Chloride 107 Carbon Dioxide 25 BUN 19 Creatinine 1.26 H Glucose 123 H Calcium 10.3 Cardiac Enzymes 09/29/17 09/29/17 Range/Units 17:20 23:13 Troponin I 0.01 0.00 (0-0.03) ng/mL Liver Function 09/30/17 Range/Units 02:45 Total Bilirubin 0.5 (0.2-1.2) mg/dL AST 25 (5-34) Units/L ALT 17 (0-55) Units/L Alkaline Phosphatase 105 (38-126) Units/L Albumin 3.6 (3.5-5.0) g/dL Urine 09/30/17 Range/Units 03:10 Urine Color Yellow (Yellow) Urine Clarity Clear (Clear) Urine pH 5.5 (5.0-8.0) pH Units Ur Specific [place] 1.019 (1.010-1.025) Urine Protein Negative (Neg-Trace) mg/dL Urine Glucose (UA) Normal (Normal) mg/dL - ABG Interpretation ABG results: ABG ABG pH 7.41 pH Units (7.32-7.45) 09/30/17 10:44 ABG pCO2 36 mmHg (35-45) 09/30/17 10:44 ABG pO2 93 mmHg (85-104) 09/30/17 10:44 ABG O2 Saturation 97 % (95-98) 09/30/17 10:44 PT/INR, D-dimer PT 12.6 Seconds (9.4-12.1) H 09/30/17 02:45 D-Dimer 837 ng/mLFEU (0-500) H 09/29/17 05:30 - Impressions Impressions Echocardiogram 09/29/17 13:30 Impressions: LVEF 60%. Normal LV chamber size, wall thickness and function. Pseudonormal diastolic function. Normal right ventricular structure and function. Mild pulmonary hypertension. No significant valvular dysfunction. Left Ventricular Wall Motion: Rest Echo Findings All wall segments showed normal motion. Findings: Study Quality * Technically adequate exam. ECG Findings * Sinus bradycardia. Left Ventricle * LVEF 60%. * Normal LV chamber size, wall thickness and function. * Pseudonormal diastolic function. Right Ventricle * Normal right ventricular structure and function. Left Atrium * Mild to moderately dilated left atrium. Right Atrium * Mildly dilated right atrium. Interatrial Septum * No evidence of PFO by color Doppler. Aortic Valve * Trileaflet aortic valve. * Mildly sclerotic aortic valve leaflets. * No aortic regurgitation. * No aortic stenosis. Mitral Valve * Normal mitral valve structure and function. * No mitral stenosis. * Trace mitral regurgitation. Tricuspid Valve * Normal tricuspid valve structure and function. * Trace tricuspid regurgitation. * Mild pulmonary hypertension. Pulmonic Valve * Normal pulmonic valve structure and function. * No pulmonic regurgitation. Aorta * Normally sized aortic root. Pericardium * The pericardium appears normal. IVC * Normal IVC dimensions and inspiratory collapse. Pulmonary Artery * Normal visualized portions of the main pulmonary artery. Consult Discharge Plan - Plan Referrals: Zain Ching MD [Primary Care Provider] -
[2017-09-30] MEDS: Latanoprost 2.5 ML BOTTLE BOTH EYES SCH (21:06)
[2017-10-01] MEDS: *HR* Heparin 5,000 UNIT/ML VIAL SQ SCH (05:37)
[2017-10-01 07:01] VITALS: BP 131/67
[2017-10-01] MEDS: Cholecalciferol (D-3) 1,000 UNIT TABLET PO SCH (09:30)
[2017-10-01] MEDS: Cyanocobalamin (B-12) 1,000 MCG TABLET PO SCH (09:30)
--- NOTE | 2017-10-01 10:05 | Discharge Summary ---
Date of Encounter: 10/01/17 Time of Encounter: 10:00 - Discharge Diagnosis (1) Bradycardia Priority: Primary Status: Chronic (2) Dyspnea Priority: Primary Status: Acute Qualifiers: Dyspnea type: unspecified Qualified Code(s): R06.00 - Dyspnea, unspecified (3) Chest pressure Priority: Primary Status: Acute - Discharge Medications Home Medications: Cholecalciferol (Vitamin D3) [Vitamin D3] 1,000 unit PO DAILY 02/16/16 [History] Levothyroxine [Synthroid] 75 mcg PO DAILY 02/16/16 [History] Pantoprazole Sodium [Protonix] 40 mg PO DAILY 02/16/16 [History] Cyanocobalamin (Vitamin B-12) [Vitamin B-12] 2,000 mcg PO DAILY 08/05/16 [ History] Simvastatin [Zocor] 40 mg PO HS 08/05/16 [History] Latanoprost [Xalatan] 1 drop OP HS 09/29/17 [History] Losartan Potassium [Cozaar] 50 mg PO DAILY 09/29/17 [History] Tamsulosin [Flomax] 0.4 mg PO DAILY capsule 10/01/17 [Rx] Allergies/Adverse Reactions: 3 Allergy/AdvReac Type Severity Reaction Status Date / Time No Known Allergies Allergy Verified 05/10/17 04:56 Procedures/tests Complete & Pending: Procedures Performed prior 72 hours Category Date Time Status EV echocardiogram Routine Y 09/29/17 13:30 Completed Venous Ultrasound [EV venous imaging LE BI] Stat Y 09/30/17 11:55 Completed Date of admission: 09/29/17 09:43 Primary care physician: Zain Ching MD Consults: 09/29/17 11:26 Consult to Cardiology [CONS] Routine Comment: Consulting Provider: Cardiology Nakita Reason for Consult: Chest pain rule out ACS. Also has a bradycardia and was seen by Dr. Potter previously Call Completed: Yes Discharging clinician: Janie Rushing Anticipated date of discharge: 10/01/17 - Patient Status Disposition: Home, Self-Care Condition: Undetermined Functional capacity at discharge: independent ambulation Overall status at discharge: patient is progressing back to baseline - Discharge Instructions Follow Up With: Zain Ching MD [Primary Care Provider] - - Diet and Activity Activity: resume usual activities as tolerated Diet: advance to your usual diet Hospital course: Mr. Landrum is a 87 year old male Admitted for chest pain and dyspnea. D-dimer was noted elevated therefore a VQ scan was done which was low probability. Chest x-ray was also noted negative. we obtained an ABG and echocardiogram and both unremarkable. Echo showed normal EF with normal LV systolic function and Pseudo diastolic dysfunction. [facility] has seen the patient. Apparently he has known bradycardia and he has seen Dr. Covarrubias in office and was offered a pacemaker which he declined. Dr. Leo has seen him and patient is still declining pacemaker. His lowest heart rate was in 30s but apparently he remained asymptomatic and his blood pressure did not go down. He is watched overnight and ambulated and he seems to stable. Leg ultrasound will be ordered and if it is negative he can be discharged. - Time Spent with Patient Total time spent providing and/or coordinating discharge services: Greater than 30 minutes - Constitutional Vitals: Temp Pulse Resp BP Pulse Ox 97.5 F L 53 18 131/67 95 10/01/17 06:56 10/01/17 06:56 10/01/17 06:56 10/01/17 06:56 10/01/17 09:24 General appearance: Present: A&O X 3, no acute distress, answers questions appropriately - Head Head exam: Present: atraumatic, normocephalic - Eye Eye exam: Present: PERRL, conjuntiva pink, sclera anicteric Pupils: Present: PERRL - Neck Neck exam general surgery: Present: supple, trachea midline. Absent: lymphadenopathy - Respiratory Respiratory exam: Present: CTAB. Absent: accessory muscle use, rales, rhonchi, wheezes - Cardiovascular Cardiovascular exam: Present: RRR, +S1, +S2. Absent: diastolic murmur, gallop, rubs, systolic murmur - GI/Abdominal GI/Abdominal exam: Present: normal bowel sounds, soft, no peritoneal signs. Absent: distended, tenderness - Extremities Exam Extremities exam: Present: warm, radial pulses palpable and symmetrical. Absent : calf tenderness, cyanotic, pedal edema - Neurological Exam Neurological exam: Present: CN II-XII intact, oriented X3, no focal deficits. Absent: pronater drift, facial droop, speech deficit - Skin Skin exam: Present: dry, intact
== END 2017-10-01 11:02 | disposition home or self-care (01) ==
LOC: 2NENU 05:09 → EMEROO 05:09 → 2NENU 12:21 → 2ANU 15:23
PROVIDERS: ADMIT Internal Medicine; ATTEND Internal Medicine